=== PATIENT | male | born 1990 | race Caucasian/White ===

== ENCOUNTER 2020-02-18 11:18 | Emergency (ER) | payer OTHER ==
[~2020-02-18] VITALS: Ht 185.4 cm; Wt 97.5 kg
[2020-02-18] MEDS ORDERED: LISINOPRIL-HCT1 EACH PO (11:29)
== END 2020-02-18 13:16 | disposition home or self-care (01) ==
LOC: ED 11:18
DX: S61.211A Laceration without foreign body of left index finger without damage to nail, initial encounter (principal); I10 Essential (primary) hypertension; Z88.1 Allergy status to other antibiotic agents; Z79.899 Other long term (current) drug therapy; X58.XXXA Exposure to other specified factors, initial encounter
CPT/HCPCS: 12001; 90471; 90715; 99282-25